=== PATIENT | male | born 1955 | race Caucasian/White ===

== ENCOUNTER 2017-11-22 16:32 | Inpatient (IN) | payer BC ==
[2017-11-22 16:56] LABS: ADD MAN DIFF? NO
[2017-11-22] MEDS ORDERED: LABETALOL HCL 20MG INJ IV (17:00)
[2017-11-22 17:02] LABS: WHITE BLOOD COUNT 8.9 10^3/ul (4.8-10.8)
[2017-11-22 17:02] LABS: BASOPHIL # 0.1 10^3/ul (0.0-0.1); BASOPHILS % 0.8 % (0.0-2.0); EOSINOPHILS # 0.4 10^3/ul (0.0-0.5); EOSINOPHILS % 4.7 % (0.0-7.0); HEMATOCRIT 49.2 % (42.0-52.0); HEMOGLOBIN 17.3 g/dl (14.0-18.0); LYMPHOCYTES # 2.9 10^3/ul (0.8-2.9); LYMPHOCYTES % 32.5 % (15.0-51.0); MEAN CORPUSCULAR HEMOGLOBIN 30.2 pg (29.0-33.0); MEAN CORPUSCULAR HGB CONC 35.2 g/dl (32.0-37.0); MEAN CORPUSCULAR VOLUME 85.9 fl (82.0-101.0); MEAN PLATELET VOLUME 9.7 fl (7.4-10.4); MONOCYTE # 0.8 10^3/ul (0.3-0.9); MONOCYTES % 8.7 % (0.0-11.0); NEUTROPHIL # 4.7 10^3/ul (1.6-7.5); NEUTROPHILS % 53.1 % (39.0-77.0); PLATELET COUNT 222 10^3/UL (140-415); RED BLOOD COUNT 5.73 10^6/ul (4.70-6.10); RED CELL DISTRIBUTION WIDTH 12.6 % (11.5-14.5)
[2017-11-22 17:14] LABS: INR 0.94; PROTIME 12.7 Sec (11.9-14.9)
[2017-11-22 17:15] LABS: PARTIAL THROMBOPLASTIN TIME 29.3 Sec (25.0-35.0)
[2017-11-22 17:20] LABS: ANION GAP 19 (8-16); BLOOD UREA NITROGEN 21 mg/dl (7-20); CALCIUM 9.9 mg/dl (8.4-10.2); CARBON DIOXIDE 27 mmol/L (21-31); CHLORIDE 102 mmol/L (97-110); CHOL/HDL RATIO 5.6 RATIO; CHOLESTEROL 225 mg/dl (100-200); CREATININE 1.12 mg/dl (0.61-1.24); GLUCOSE 105 mg/dl (70-220); HDL CHOLESTEROL 40 mg/dl (30-78); LDL CHOLESTEROL,CALCULATED 143 mg/dl; POTASSIUM 3.7 mmol/L (3.5-5.1); SODIUM 144 mmol/L (135-144); TRIGLYCERIDES 209 mg/dl (0-149)
[2017-11-22] MEDS ORDERED: ONDANSETRON 4 MG INJ IV ×2 (17:30→23:30)
[2017-11-22 17:33] LABS: TROPONIN-I < 0.012 ng/ml (0.00-0.12)
[2017-11-22 17:58] LABS: HEMOGLOBIN A1C 5.1 % (0-5.9)
[2017-11-22 18:38] LABS: ADD UMIC NO; UR ASCORBIC ACID 40 mg/dL (NEGATIVE); UR BILIRUBIN (Dip) NEGATIVE (NEGATIVE); UR BLOOD (Dip) NEGATIVE (NEGATIVE); UR CLARITY SLIGHTLY CLOUDY (CLEAR); UR COLOR AMBER (YELLOW); UR GLUCOSE (Dip) NEGATIVE (NEGATIVE); UR KETONES (Dip) TRACE mg/dL (NEGATIVE); UR LEUKOCYTE ESTERASE (Dip) NEGATIVE Leu/ul (NEGATIVE); UR NITRITE (Dip) NEGATIVE (NEGATIVE); UR RBC 0 /HPF (0-5); UR TOTAL PROTEIN (Dip) NEGATIVE (NEGATIVE); UR UROBILINOGEN (Dip) NEGATIVE (NEGATIVE); UR WBC 2 /HPF (0-5)
[2017-11-22 19:19] LABS: AMPHETAMINE/METHAMPHETAMINE Negative (NEGATIVE); BARBITURATES Negative (NEGATIVE); BENZODIAZEPINES Negative (NEGATIVE); CANNABINOIDS Negative (NEGATIVE); COCAINE Negative (NEGATIVE); OPIATES Negative (NEGATIVE)
[2017-11-22] MEDS: ACETAMINOPHEN 325 MG TAB PO (23:17)
[2017-11-22] MEDS ORDERED: ACETAMINOPHEN 325 MG TAB PO (23:30)
[2017-11-23] MEDS: AMOXICILLIN/CLAV 875 MG TAB PO ×3 (00:27→20:11)
[2017-11-23] MEDS ORDERED: ZOLPIDEM 5 MG TAB PO (01:00)
[2017-11-23] MEDS: AMLODIPINE 5 MG TAB PO (08:22)
[2017-11-23 08:54] LABS: CHOLESTEROL 221 mg/dl (100-200)
[2017-11-23 08:54] LABS: CHOL/HDL RATIO 6.1 RATIO; HDL CHOLESTEROL 36 mg/dl (30-78); LDL CHOLESTEROL,CALCULATED 148 mg/dl; TRIGLYCERIDES 187 mg/dl (0-149)
[2017-11-23] MEDS: predniSONE 20 MG TAB PO (20:12)
[2017-11-24] MEDS: PANTOPRAZOLE (EC) 40 MG TAB PO (06:18)
[2017-11-24 08:06] LABS: ALANINE AMINOTRANSFERASE 42 IU/L (13-69); ALBUMIN 4.6 g/dl (3.3-4.9); ALBUMIN/GLOBULIN RATIO 1.27; ALKALINE PHOSPHATASE 59 IU/L (42-121); ANION GAP 19 (8-16); ASPARTATE AMINO TRANSFERASE 38 IU/L (15-46); BILIRUBIN,INDIRECT 1.5 mg/dl (0-1.1); BILIRUBIN,TOTAL 1.5 mg/dl (0.2-1.3); BLOOD UREA NITROGEN 19 mg/dl (7-20); CALCIUM 9.6 mg/dl (8.4-10.2); CARBON DIOXIDE 24 mmol/L (21-31); CHLORIDE 102 mmol/L (97-110); CREATININE 1.11 mg/dl (0.61-1.24); GLUCOSE 130 mg/dl (70-220); POTASSIUM 4.4 mmol/L (3.5-5.1); SODIUM 141 mmol/L (135-144); TOTAL PROTEIN 8.2 g/dl (6.1-8.1)
[2017-11-24] MEDS: AMOXICILLIN/CLAV 875 MG TAB PO ×2 (08:39→21:20)
[2017-11-24] MEDS: predniSONE 20 MG TAB PO (08:39)
[2017-11-24] MEDS: AMLODIPINE 5 MG TAB PO (08:40)
[2017-11-24] MEDS: FENOFIBRATE 145 MG TAB PO (18:00)
[2017-11-25] MEDS: PANTOPRAZOLE (EC) 40 MG TAB PO (05:28)
[2017-11-25] MEDS: predniSONE 20 MG TAB PO (08:56)
[2017-11-25] MEDS: AMLODIPINE 5 MG TAB PO (08:56)
[2017-11-25] MEDS: FENOFIBRATE 145 MG TAB PO (08:56)
[2017-11-25] MEDS: AMOXICILLIN/CLAV 875 MG TAB PO ×2 (08:57→21:00)
[2017-11-26] MEDS: PANTOPRAZOLE (EC) 40 MG TAB PO (05:22)
[2017-11-26] MEDS: AMLODIPINE 5 MG TAB PO (09:00)
[2017-11-26] MEDS: FENOFIBRATE 145 MG TAB PO (09:14)
[2017-11-26] MEDS: AMOXICILLIN/CLAV 875 MG TAB PO (09:14)
[2017-11-26] MEDS: predniSONE 20 MG TAB PO (09:15)
[2017-11-28 21:42] LABS: ACETYLCHOLINE RECEPTOR AB <0.30 nmol/L
[2017-11-29] MEDS ORDERED: predniSONE 20 MG TAB PO (09:00)
== END 2017-11-26 13:15 | disposition home or self-care (01) | DRG 123 ==
LOC: E/R 16:32 → MS4 17:25
DX: H49.02 Third [oculomotor] nerve palsy, left eye (principal); R51 Headache; I10 Essential (primary) hypertension; E78.5 Hyperlipidemia, unspecified; J32.3 Chronic sphenoidal sinusitis
CPT/HCPCS: 36415; 70486; 70543; 70545; 70553; 71045; 80048; 80053; 80061; 80307; 81001; 81003; 83036; 83519; 84443; 84484; 85025; 85610; 85730; 93005; 93306; 99291-25